=== PATIENT | male | born 1995 | race Caucasian/White ===

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

== ENCOUNTER 2017-01-25 13:53 | Emergency (ER) | payer OTHER ==
[~2017-01-25] VITALS: Ht 175.3 cm; Wt 86.5 kg
[~2017-01-25 13:53] MED LIST changes: +OMEP20CA16 PO; +ONDA4TAB14 PO; +RANI150T9 PO
[2017-01-25 13:57] VITALS: Ht 175.3 cm; Wt 86.5 kg
[2017-01-25] MEDS ORDERED: morphine 4 MG/ML VIAL IV STA (14:31)
[2017-01-25] MEDS ORDERED: ONDANSETRON 4 MG INJ IV STA (14:31)
[2017-01-25 15:12] LABS: BASOPHILS % 0.4 % (0.0-2.0); EOSINOPHILS % 0.2 % (0.0-7.0); HEMATOCRIT 43.9 % (42.0-52.0); HEMOGLOBIN 14.7 g/dl (14.0-18.0); LYMPHOCYTES % 9.1 % (18.0-55.0); MEAN CORPUSCULAR HEMOGLOBIN 30.1 pg (29.0-33.0); MEAN CORPUSCULAR HGB CONC 33.5 g/dl (32.0-37.0); MEAN PLATELET VOLUME 11.9 fl (7.4-10.4); MONOCYTE # 0.3 10^3/ul (0.3-0.9); MONOCYTES % 2.9 % (0.0-13.0); NEUTROPHIL # 9.5 10^3/ul (1.6-7.5); NEUTROPHILS % 86.8 % (30.0-74.0); PLATELET COUNT 279 10^3/UL (140-415); RED BLOOD COUNT 4.88 10^6/ul (4.70-6.10); RED CELL DISTRIBUTION WIDTH 12.3 % (11.5-14.5)
[2017-01-25 15:31] LABS: ALBUMIN 5.3 g/dl (3.3-4.9); ALBUMIN/GLOBULIN RATIO 1.32; BILIRUBIN,INDIRECT 0.7 mg/dl (0-1.1); BILIRUBIN,TOTAL 0.7 mg/dl (0.2-1.3); CALCIUM 10.7 mg/dl (8.4-10.2); CREATININE 0.8 mg/dl (0.61-1.24); POTASSIUM 3.8 mmol/L (3.5-5.1); TOTAL PROTEIN 9.3 g/dl (6.1-8.1)
[2017-01-25 15:37] LABS: ADD UMIC YES; UR AMORPHOUS CRYSTAL FEW /HPF (NONE SEEN); UR ASCORBIC ACID 40 mg/dL (NEGATIVE); UR BILIRUBIN (Dip) NEGATIVE (NEGATIVE); UR BLOOD (Dip) NEGATIVE (NEGATIVE); UR CLARITY CLOUDY (CLEAR); UR COLOR AMBER (YELLOW); UR GLUCOSE (Dip) NEGATIVE (NEGATIVE); UR KETONES (Dip) 2+ mg/dL (NEGATIVE); UR LEUKOCYTE ESTERASE (Dip) NEGATIVE Leu/ul (NEGATIVE); UR MUCUS FEW /HPF (NONE SEEN); UR NITRITE (Dip) NEGATIVE (NEGATIVE); UR RBC 0 /HPF (0-5); UR SPECIFIC GRAVITY (Dip) 1.029 (1.003-1.030); UR TOTAL PROTEIN (Dip) 2+ mg/dl (NEGATIVE); UR UROBILINOGEN (Dip) NEGATIVE (NEGATIVE)
--- NOTE | 2017-01-25 15:40 | RADRPT ---
PROCEDURE: CT abdomen and pelvis without contrast. CLINICAL INDICATION: Constipation. Abdominal pain. Vomiting. TECHNIQUE: CT scan of the abdomen and pelvis without contrast was performed and is reconstructed a t 2.5 mm contiguous axial intervals from the dome of the diaphragm to the inferior pubic rami.. The patient was scanned without intravenous contrast. Sagittal and coronal reformatted images were obt ained from the axial source images. The calculated radiation dose measures of 745 mGy centimeters. T he CTDI measures 512 mGy. Individualized dose optimization technique was used for the performance of this exam. This included 1. Automated exposure control. 2. Adjustment of the mA and / or kV according to the patient's size. 3. Use of iterative reconstructed technique. COMPARISON: None. FINDINGS: The lung bases are clear of any infiltrate or nodule. No effusion is seen. The liver is of normal size, contour and attenuation with no mass or ductal dilatation. No gallston es are visualized. No splenic, adrenal or pancreatic abnormalities present. Kidneys are of normal size and contour. No hydronephrosis, calculus or masses seen. Ureters are o f normal course and caliber with no stone. No bladder mass or stone is present. Prostate and semina l vesicles are normal. There is no aneurysm. No adenopathy is present. No bowel mass or obstruction is present. The appendix is normal. No phlegmon, ascites or pneumop eritoneum is visualized. The osseous structures are intact. IMPRESSION: No evidence of urolithiasis, obstructive uropathy, diverticulitis or appendicitis. No evidence of bowel obstruction or mass. .William Gay MD, Date Time Electronically viewed and signed by .William Gay MD, MD on 01/25/2017 15:39 .A/
--- NOTE | 2017-01-25 15:51 | ERD ---
ER Documentation Chief Complaint Chief Complaint mid abd pain with vomiting x 2 days HPI This is a 21-year-old male who presents emergency department today complaining of abdominal pain and vomiting for the past 4 days. Patient states he has been on keep down water. States that he had his last bowel movement 2 days ago and is not passing gas. States he is only burping. Denies any alcohol abuse however endorses smoking marijuana daily. Denies any fevers or chills, dysuria. ROS All systems reviewed and are negative except as per history of present illness. Medications Home Meds Active Scripts Electrolyte,Oral (Pedialyte) 1,000 Ml Solution, 100 ML PO Q6 Y for VOMITTING, # 1000 ML Prov:MARGARET MORENO PA-C 01/25/17 Famotidine* (Pepcid*) 20 Mg Tablet, 20 MG PO BID for 10 Days, TAB Prov:MARGARET MORENO PA-C 01/25/17 Acetaminophen* (Tylophen*) 500 Mg Capsule, 1 CAP PO Q6H Y for PAIN AND OR ELEVATED TEMP, #30 CAP Prov:MARGARET MORENO PA-C 01/25/17 Ondansetron Hcl* (Zofran*) 4 Mg Tablet, 4 MG PO Q6H for NAUSEA AND/OR VOMITING, #30 TAB Prov:MARGARET MORENO PA-C 01/25/17 Ranitidine Hcl* (Zantac*) 150 Mg Tablet, 150 MG PO BID Y for EPIGASTRIC PAIN, # 30 TAB Prov:KEE JEAN NP 04/02/16 Omeprazole* (Omeprazole*) 20 Mg Capsule.dr, 20 MG PO DAILY for 14 Days Prov:KEE JEAN NP 04/02/16 Ondansetron (Ondansetron Odt) 4 Mg Tab.rapdis, 4 MG PO Q6H Y for NAUSEA AND/OR VOMITING, #10 TAB Prov:KEE JEAN NP 04/02/16 Reported Medications Albuterol Sulfate* (Albuterol Sulfate* Neb) 0.083%-3 Ml Neb, 2.5 MG NEB Q4H Y for SHORTNESS OF BREATH, EA 06/16/14 Albuterol Sulfate* (Proair HFA*) 8.5 Gm Hfa.aer.ad, 2 PUFF INH Q6H Y for WHEEZING AND SOB, INH 06/16/14 Allergies Allergies: Coded Allergies: No Known Allergy (Unverified , 06/16/14) PMhx/Soc Medical and Surgical Hx: pt denies Medical Hx, pt denies Surgical Hx History of Surgery: No Anesthesia Reaction: No Hx Neurological Disorder: No Hx Respiratory Disorders: No Hx Cardiac Disorders: No Hx Psychiatric Problems: No Hx Miscellaneous Medical Probl: No Hx Alcohol Use: No Hx Substance Use: Yes (marijuana daily ) Hx Tobacco Use: No Smoking Status: Current every day smoker Physical Exam Vitals Vital Signs Date Time Temp Pulse Resp B/P Pulse Ox O2 Delivery O2 Flow Rate FiO2 01/25/17 13:57 97.9 86 18 147/64 100 Physical Exam Const: NAD Head: Atraumatic Eyes: Normal Conjunctiva ENT: Normal External Ears, Nose and Mouth. Neck: Full range of motion..~ No meningismus. Resp: Clear to auscultation bilaterally Cardio: Regular rate and rhythm, no murmurs Abd: Soft, diffuse abdominal pain non distended. Normal bowel sounds Skin: No petechiae or rashes Neur: Awake and alert Psych: Normal Mood and Affect Result Diagram: 01/25/17 1435 01/25/17 1435 Results 24 hrs Laboratory Tests Test 01/25/17 14:00 01/25/17 14:35 Urine Color NE Urine Clarity CLOUDY Urine pH 7.0 Urine Specific [place] 1.029 Urine Ketones 2+mg/dL Urine Nitrite NEGATIVEmg/dL Urine Bilirubin NEGATIVEmg/dL Urine Urobilinogen NEGATIVEmg/dL Urine Leukocyte Esterase NEGATIVELeu/ul Urine Microscopic RBC 0/HPF Urine Microscopic WBC 0/HPF Urine Amorphous Crystals FEW/HPF Urine Mucus FEW/HPF Urine Hemoglobin NEGATIVEmg/dL Urine Glucose NEGATIVEmg/dL Urine Total Protein 2+mg/dl White Blood Count 11.010^3/ul Red Blood Count 4.8810^6/ul Hemoglobin 14.7g/dl Hematocrit 43.9% Mean Corpuscular Volume 90.0fl Mean Corpuscular Hemoglobin 30.1pg Mean Corpuscular Hemoglobin Concent 33.5g/dl Red Cell Distribution Width 12.3% Platelet Count 62987^3/UL Mean Platelet Volume 11.9fl Neutrophils % 86.8% Lymphocytes % 9.1% Monocytes % 2.9% Eosinophils % 0.2% Basophils % 0.4% Nucleated Red Blood Cells % 0.0/100WBC Neutrophils # 9.510^3/ul Lymphocytes # 1.010^3/ul Monocytes # 0.310^3/ul Eosinophils # 0.010^3/ul Basophils # 0.010^3/ul Nucleated Red Blood Cells # 0.010^3/ul Sodium Level 143mmol/L Potassium Level 3.8mmol/L Chloride Level 102mmol/L Carbon Dioxide Level 25mmol/L Anion Gap 20 Blood Urea Nitrogen 13mg/dl Creatinine 0.80mg/dl Glucose Level 148mg/dl Calcium Level 10.7mg/dl Total Bilirubin 0.7mg/dl Direct Bilirubin 0.00mg/dl Indirect Bilirubin 0.7mg/dl Aspartate Amino Transf (AST/SGOT) 29IU/L Alanine Aminotransferase (ALT/SGPT) 44IU/L Alkaline Phosphatase 99IU/L Total Protein 9.3g/dl Albumin 5.3g/dl Globulin 4.00g/dl Albumin/Globulin Ratio 1.32 Lipase 37U/L Current Medications Medications (Trade) Dose Ordered Sig/Ted Route PRN Reason Start Time Stop Time Status Last Admin Dose Admin Morphine Sulfate (morphine) 4 mg ONCE STAT IV 01/25/17 14:31 01/25/17 14:33 DC 01/25/17 14:46 Ondansetron HCl (Zofran Inj) 4 mg ONCE STAT IV 01/25/17 14:31 01/25/17 14:33 DC 01/25/17 14:45 DIAGNOSTIC IMAGING REPORT Patient: JONATHON ALCALA : 1995 Age: 21 Sex: M [id number] DOS: 01/25/17 1431 Ordering MD: MARGARET MORENO PA-C Location: [facility] Room/Bed: PROCEDURE: CT abdomen and pelvis without contrast. CLINICAL INDICATION: Constipation. Abdominal pain. Vomiting. TECHNIQUE: CT scan of the abdomen and pelvis without contrast was performed and is reconstructed at 2.5 mm contiguous axial intervals from the dome of the diaphragm to the inferior pubic rami.. The patient was scanned without intravenous contrast. Sagittal and coronal reformatted images were obtained from the axial source images. The calculated radiation dose measures of 745 mGy centimeters. The CTDI measures 512 mGy. Individualized dose optimization technique was used for the performance of this exam. This included 1. Automated exposure control. 2. Adjustment of the mA and / or kV according to the patient's size. 3. Use of iterative reconstructed technique. COMPARISON: None. FINDINGS: The lung bases are clear of any infiltrate or nodule. No effusion is seen. The liver is of normal size, contour and attenuation with no mass or ductal dilatation. No gallstones are visualized. No splenic, adrenal or pancreatic abnormalities present. Kidneys are of normal size and contour. No hydronephrosis, calculus or masses seen. Ureters are of normal course and caliber with no stone. No bladder mass or stone is present. Prostate and seminal vesicles are normal. There is no aneurysm. No adenopathy is present. No bowel mass or obstruction is present. The appendix is normal. No phlegmon , ascites or pneumoperitoneum is visualized. The osseous structures are intact. IMPRESSION: No evidence of urolithiasis, obstructive uropathy, diverticulitis or appendicitis. No evidence of bowel obstruction or mass. .William Gay MD, MD Date Time Electronically viewed and signed by .William Gay MD, MD on 01/25/2017 15: 39 .A/ CC: MARGARET MORENOC Procedures/[facility] This is a 21-year-old male who presents the emergency department today complaining of abdominal pain and vomiting for the past 4 days. Patient is afebrile and otherwise well-appearing however on physical exam he had diffuse abdominal pain. He also indicated that he had not had a bowel movement 2 days and was not passing gas but was burping. Laboratory workup mildly elevated white blood cell count of 11. He is not anemic. Platelets are within normal limits. Electrolytes are within normal limits. Glucose is within normal limits. Liver enzymes are within normal limits. Lipase is within normal limits. UA shows 2+ ketones otherwise negative for infection. CT abdomen pelvis shows no evidence of bowel obstruction or mass. No evidence of urolithiasis, obstructive uropathy, diverticulitis or appendicitis. Patient has abdominal pain of uncertain etiology however may be related to persistent vomiting. There is no evidence to suggest acute surgical abdomen at this time. Patient smokes marijuana daily and this may also be cyclic vomiting syndrome is gastroenteritis likely viral. Patient was given Zofran and morphine here in the emergency department. Given a p.o. challenge and was able to tolerate oral fluids and was asking for more water. Given a prescription for Tylenol, Zofran, Pedialyte and Pepcid for home. Patient was instructed to stop smoking marijuana. At this time the patient is stable for discharge and outpatient management. Patient should follow up with their PCP in the next 1-2 days. They may return to the emergency department sooner for any persistent or worsening of symptoms. Patient understood and agreed with the plan. Departure Diagnosis: Primary Impression: Abdominal pain Abdominal location: generalized Qualified Code: R10.84 - Generalized abdominal pain Additional Impression: Vomiting Vomiting type: unspecified Vomiting Intractability: non-intractable Nausea presence: with nausea Qualified Code: R11.2 - Non-intractable vomiting with nausea, unspecified vomiting type Condition: MARGARET Zamorano PA-C Jan 25, 2017 15:51
[2017-01-25] MEDS ORDERED: ONDA4TAB8 PO (16:26)
[2017-01-25] MEDS ORDERED: ACET500C5 PO (16:27)
[2017-01-25] MEDS ORDERED: FAMO-96 PO (16:27)
[2017-01-25] MEDS ORDERED: ELEC100080 PO (16:27)
== END 2017-01-25 16:48 | disposition home or self-care (01) ==
LOC: FTE 13:53
DX: R10.84 Generalized abdominal pain (principal); R11.2 Nausea with vomiting, unspecified; F17.210 Nicotine dependence, cigarettes, uncomplicated
CPT/HCPCS: 36415; 74176; 80053; 81001; 83690; 85025; 96374; 96375; J2270; J2405; Z7502

== ENCOUNTER 2017-01-27 09:51 | Emergency (ER) | payer OTHER ==
[~2017-01-27] VITALS: Ht 175.3 cm; Wt 85.8 kg
[~2017-01-27 09:51] MED LIST changes: +ACET500C5 PO; +ELEC100080 PO; +FAMO-96 PO; +ONDA4TAB8 PO
[2017-01-27 09:58] VITALS: Ht 175.3 cm; Wt 85.8 kg
[2017-01-27] MEDS ORDERED: ONDANSETRON 4 MG INJ IV STA (11:01)
[2017-01-27] MEDS ORDERED: SOD CHLORIDE 0.9% 1,000 ML IV STA (11:01)
--- NOTE | 2017-01-27 11:05 | ERD ---
ER Documentation Chief Complaint Chief Complaint abdominal pain and vomiting x 7 days HPI 21-year-old male otherwise healthy comes in with lower abdominal pain as well as nausea vomiting for approximately 7 days. The patient reports up to 7 episodes of nonbloody nonbilious emesis, with diffuse lower abdominal pain. Patient has tried sublingual Zofran but states that he is continuing to have vomiting. The pain is achy, diffuse, and has not noted any bowel movements since he has not been able to keep anything down. He denies any fevers or chills. Denies recent travel. Patient does admit smoking marijuana in the past. ROS All systems reviewed and are negative except as per history of present illness. Medications Home Meds Active Scripts Lorazepam* (Ativan*) 0.5 Mg Tablet, 0.5 MG PO Q8, #10 TAB Prov:CHELE VALDEZ PA-C 01/27/17 Ondansetron (Ondansetron Odt) 4 Mg Tab.rapdis, 4 MG PO Q6H Y for NAUSEA AND/OR VOMITING, #10 TAB Prov:CHELE VALDEZ PA-C 01/27/17 Electrolyte,Oral (Pedialyte) 1,000 Ml Solution, 100 ML PO Q6 Y for VOMITTING, # 1000 ML Prov:MARGARET MORENO PA-C 01/25/17 Famotidine* (Pepcid*) 20 Mg Tablet, 20 MG PO BID for 10 Days, TAB Prov:MARGARET MORENO PA-C 01/25/17 Acetaminophen* (Tylophen*) 500 Mg Capsule, 1 CAP PO Q6H Y for PAIN AND OR ELEVATED TEMP, #30 CAP Prov:MARGARET MORENO PA-C 01/25/17 Ondansetron Hcl* (Zofran*) 4 Mg Tablet, 4 MG PO Q6H for NAUSEA AND/OR VOMITING, #30 TAB Prov:MARGARET MORENO PA-C 01/25/17 Ranitidine Hcl* (Zantac*) 150 Mg Tablet, 150 MG PO BID Y for EPIGASTRIC PAIN, # 30 TAB Prov:KEE JEAN NP 04/02/16 Omeprazole* (Omeprazole*) 20 Mg Capsule.dr, 20 MG PO DAILY for 14 Days Prov:KEE JEAN NP 04/02/16 Ondansetron (Ondansetron Odt) 4 Mg Tab.rapdis, 4 MG PO Q6H Y for NAUSEA AND/OR VOMITING, #10 TAB Prov:KEE JEAN REFERENCE LIBRARIAN 04/02/16 Reported Medications Albuterol Sulfate* (Albuterol Sulfate* Neb) 0.083%-3 Ml Neb, 2.5 MG NEB Q4H Y for SHORTNESS OF BREATH, EA 06/16/14 Albuterol Sulfate* (Proair HFA*) 8.5 Gm Hfa.aer.ad, 2 PUFF INH Q6H Y for WHEEZING AND SOB, INH 06/16/14 Allergies Allergies: Coded Allergies: No Known Allergy (Unverified , 01/27/17) PMhx/Soc Medical and Surgical Hx: pt denies Medical Hx, pt denies Surgical Hx History of Surgery: No Anesthesia Reaction: No Hx Neurological Disorder: No Hx Respiratory Disorders: No Hx Cardiac Disorders: No Hx Psychiatric Problems: No Hx Miscellaneous Medical Probl: No Hx Alcohol Use: No Hx Substance Use: Yes (marijuana daily ) Hx Tobacco Use: No Physical Exam Vitals Vital Signs Date Time Temp Pulse Resp B/P Pulse Ox O2 Delivery O2 Flow Rate FiO2 01/27/17 09:58 98.9 73 18 160/85 99 Physical Exam General: Well-developed, well-nourished. The patient appears in no acute distress. HEENT: Head is normocephalic, atraumatic. No scleral icterus. Neck: Supple. Nontender. Lungs: Clear to auscultation. Normal air movement. Heart: Regular rate and rhythm. S1 and S2 are normal. No murmurs, gallops, or rubs. Abdomen: Soft mild diffuse lower abdominal pain tenderness, nondistended. Bowel sounds are normoactive. No rebound, guarding, no peritoneal signs, no hepatosplenomegaly. Negative Rust sign. Extremities: No clubbing or cyanosis. Normal pulses. Moving extremities x 4. No weakness. Neurologic: Alert and oriented 3. No focal deficits. Skin: Normal turgor. No rash or lesions. Result Diagram: 01/27/17 1120 01/27/17 1120 Results 24 hrs Laboratory Tests Test 01/27/17 11:20 White Blood Count 8.410^3/ul Red Blood Count 4.9910^6/ul Hemoglobin 15.2g/dl Hematocrit 44.9% Mean Corpuscular Volume 90.0fl Mean Corpuscular Hemoglobin 30.5pg Mean Corpuscular Hemoglobin Concent 33.9g/dl Red Cell Distribution Width 12.4% Platelet Count 45143^3/UL Mean Platelet Volume 11.7fl Neutrophils % 83.3% Lymphocytes % 11.0% Monocytes % 4.6% Eosinophils % 0.0% Basophils % 0.6% Nucleated Red Blood Cells % 0.0/100WBC Neutrophils # 7.010^3/ul Lymphocytes # 0.910^3/ul Monocytes # 0.410^3/ul Eosinophils # 0.010^3/ul Basophils # 0.110^3/ul Nucleated Red Blood Cells # 0.010^3/ul Sodium Level 144mmol/L Potassium Level 3.7mmol/L Chloride Level 100mmol/L Carbon Dioxide Level 29mmol/L Anion Gap 19 Blood Urea Nitrogen 12mg/dl Creatinine 0.87mg/dl Glucose Level 123mg/dl Calcium Level 10.5mg/dl Total Bilirubin 0.6mg/dl Direct Bilirubin 0.00mg/dl Indirect Bilirubin 0.6mg/dl Aspartate Amino Transf (AST/SGOT) 26IU/L Alanine Aminotransferase (ALT/SGPT) 50IU/L Alkaline Phosphatase 92IU/L Total Protein 9.4g/dl Albumin 5.3g/dl Globulin 4.10g/dl Albumin/Globulin Ratio 1.29 Lipase 44U/L Current Medications Medications (Trade) Dose Ordered Sig/Ted Route PRN Reason Start Time Stop Time Status Last Admin Dose Admin Sodium Chloride (NS) 1,000 ml @ 1,000 mls/hr Q1H STAT IV 01/27/17 11:01 01/27/17 12:00 DC 01/27/17 11:11 Ondansetron HCl (Zofran Inj) 4 mg ONCE STAT IV 01/27/17 11:01 01/27/17 11:02 DC 01/27/17 11:10 Ketorolac Tromethamine (Toradol) 30 mg ONCE STAT IV 01/27/17 11:27 01/27/17 11:28 DC 01/27/17 11:31 DIAGNOSTIC IMAGING REPORT Patient: JONATHON ALCALA : 1995 Age: 21 Sex: M MR #: [id number] DOS: 01/27/17 1247 Ordering MD: CHELE VALDEZ PA-C Location: [facility] Room/Bed: PROCEDURE: XR Abdomen. CLINICAL INDICATION: Abdominal pain TECHNIQUE: 4 views of the abdomen are available for review. COMPARISON: None. FINDINGS: The bowel gas pattern is normal. There is no evidence of obstruction. There are no abnormal calcifications overlying the urinary tracts. The osseous structures are unremarkable. IMPRESSION: 1. Unremarkable abdomen x-ray series. RPTAT: PP .Efraín Em MD, MD Date Time Electronically viewed and signed by .Efraín Em MD, MD on 01/27/2017 13:55 .B/ Procedures/MDM ED COURSE: Patient had IV line access obtained, blood was obtained, he was given a fluid bolus of normal saline 1 L with Zofran 4 mg IV MEDICAL DECISION MAKIN-year-old male presents with lower abdominal pain for 1 week with nausea vomiting, the patient's blood work was repeated today, and a KUB was performed. All lab work is unremarkable, there is no leukocytosis, no transaminitis evidence of pancreatitis. The patient's abdominal pain has resolved with Toradol, he was given normal saline intravenously with Zofran and has significant improvement of symptoms. He did not have any further emesis in the emergency department he was able to drink a cup of water. It is most likely due to cyclical vomiting. CT of abdomen pelvis was reviewed from previous visit , was negative for appendicitis or acute intra-abdominal process. The base on the patient's improvement of pain, normal lab work, discussed the radiation risk of repeating the CT scan today and the patient agrees and understands. Therefore X-ray was done today, Patient's KUB was also normal, no evidence of obstruction. Serial abdominal examinations were done in the emergency room, the patient is feeling much better and stable for discharge. Patient was counseled on cannabis use related to cyclical vomiting she patient understands and agrees. He will also be prescribed a short course of Ativan with additional Zofran. The case was reviewed and discussed with Dr. Johnson who agrees with the plan of care including labs, treatment, and advanced imaging as appropriate. Departure Diagnosis: Primary Impression: Abdominal pain Additional Impression: Cannabis abuse Condition: CHELE Irwin PA-C Jan 27, 2017 11:05
[2017-01-27] MEDS ORDERED: KETOROLAC 30 MG INJ IV STA (11:27)
[2017-01-27 11:35] LABS: BASOPHIL # 0.1 10^3/ul (0.0-0.1); BASOPHILS % 0.6 % (0.0-2.0); HEMATOCRIT 44.9 % (42.0-52.0); HEMOGLOBIN 15.2 g/dl (14.0-18.0); LYMPHOCYTES # 0.9 10^3/ul (0.8-2.9); MEAN CORPUSCULAR HEMOGLOBIN 30.5 pg (29.0-33.0); MEAN CORPUSCULAR HGB CONC 33.9 g/dl (32.0-37.0); MEAN PLATELET VOLUME 11.7 fl (7.4-10.4); MONOCYTE # 0.4 10^3/ul (0.3-0.9); MONOCYTES % 4.6 % (0.0-13.0); NEUTROPHILS % 83.3 % (30.0-74.0); PLATELET COUNT 247 10^3/UL (140-415); RED BLOOD COUNT 4.99 10^6/ul (4.70-6.10); RED CELL DISTRIBUTION WIDTH 12.4 % (11.5-14.5); WHITE BLOOD COUNT 8.4 10^3/ul (4.8-10.8)
[2017-01-27 11:55] LABS: ALBUMIN 5.3 g/dl (3.3-4.9); ALBUMIN/GLOBULIN RATIO 1.29; BILIRUBIN,INDIRECT 0.6 mg/dl (0-1.1); BILIRUBIN,TOTAL 0.6 mg/dl (0.2-1.3); CALCIUM 10.5 mg/dl (8.4-10.2); CREATININE 0.87 mg/dl (0.61-1.24); POTASSIUM 3.7 mmol/L (3.5-5.1); TOTAL PROTEIN 9.4 g/dl (6.1-8.1)
--- NOTE | 2017-01-27 13:55 | RADRPT ---
PROCEDURE: XR Abdomen. CLINICAL INDICATION: Abdominal pain TECHNIQUE: 4 views of the abdomen are available for review. COMPARISON: None. FINDINGS: The bowel gas pattern is normal. There is no evidence of obstruction. There are no abnormal calcific ations overlying the urinary tracts. The osseous structures are unremarkable. IMPRESSION: 1. Unremarkable abdomen x-ray series. RPTAT: PP .Efraín Em MD, MD Date Time Electronically viewed and signed by .Efraín Em MD, on 01/27/2017 13:55 .B/
[2017-01-27] MEDS ORDERED: ONDA4TAB14 PO (14:06)
[2017-01-27] MEDS ORDERED: LORA-441 PO (14:06)
== END 2017-01-27 14:56 | disposition home or self-care (01) ==
LOC: FTE 09:51
DX: R10.84 Generalized abdominal pain (principal); F12.10 Cannabis abuse, uncomplicated
CPT/HCPCS: 36415; 74010; 80053; 83690; 85025; 96374; 96375; J1885; J2405; J7030; Z7502

== ENCOUNTER 2017-06-29 09:59 | Emergency (ER) | END 2017-06-29 13:28 | disposition home or self-care (01) ==

== ENCOUNTER 2017-11-30 03:30 | Emergency (ER) | END 2017-11-30 06:25 | disposition home or self-care (01) ==

== ENCOUNTER 2017-12-02 08:13 | Emergency (ER) | END 2017-12-02 13:50 | disposition home or self-care (01) ==